=== PATIENT | male | born 1945 | race Caucasian/White ===

== ENCOUNTER 2020-05-26 07:55 | Emergency (ER) | payer OTHER ==
[~2020-05-26] VITALS: Ht 170.2 cm; Wt 77.1 kg
[~2020-05-26 07:55] MED LIST: ATENOLOL50 PO; CARVEDILOL3.125 M1; COUMADIN1 MG PO; COUMADIN6 MG PO; FLAGYL500 MG PO; METFORMIN ER500 M1; METFORMIN1000 MG PO; ZESTRIL20 PO
[2020-05-26 08:03] VITALS: Ht 170.2 cm; Wt 77.1 kg
[2020-05-26 08:31] VITALS: BP 183/82
== END 2020-05-26 08:31 | disposition home or self-care (01) ==
LOC: ED 07:55
DX: S01.01XA Laceration without foreign body of scalp, initial encounter (principal); I10 Essential (primary) hypertension; E11.9 Type 2 diabetes mellitus without complications; W22.8XXA Striking against or struck by other objects, initial encounter; Y93.89 Activity, other specified; Y92.89 Other specified places as the place of occurrence of the external cause; Y99.8 Other external cause status

== ENCOUNTER 2020-07-16 15:14 | Emergency (ER) | payer OTHER, SELFPAY ==
[~2020-07-16] VITALS: Ht 175.3 cm; Wt 79.4 kg
[2020-07-16 15:17] VITALS: Ht 175.3 cm; Wt 79.4 kg
[2020-07-16 19:03] VITALS: BP 117/67
== END 2020-07-16 19:03 | disposition home or self-care (01) ==
LOC: ED 15:14
DX: M79.10 Myalgia, unspecified site (principal); R11.0 Nausea; R51.9 Headache, unspecified; I10 Essential (primary) hypertension; E11.9 Type 2 diabetes mellitus without complications; E03.9 Hypothyroidism, unspecified; Z20.828 Contact with and (suspected) exposure to other viral communicable diseases; Z98.890 Other specified postprocedural states
CPT/HCPCS: 82962; J1885